=== PATIENT | female | born 1975 | race Caucasian/White ===

== ENCOUNTER 2019-02-25 13:49 | Emergency (ER) | payer BC ==
[2019-02-25] MEDS ORDERED: SIMETHICONE 80 MG TAB.CHEW ONE (15:21)
[2019-02-25] MEDS ORDERED: DICYCLOMINE HCL 20 MG TAB ONE (15:22)
[2019-02-25] MEDS ORDERED: ONDANSETRON ODT 4 MG TAB ONE (15:22)
== END 2019-02-25 16:24 | disposition home or self-care (01) ==
LOC: EDH 13:49
DX: R19.7 Diarrhea, unspecified (principal); R11.0 Nausea; R10.84 Generalized abdominal pain; M79.10 Myalgia, unspecified site; F41.9 Anxiety disorder, unspecified; F32.9 Major depressive disorder, single episode, unspecified